=== PATIENT | female | born 1965 | race Caucasian/White ===

== ENCOUNTER 2020-05-05 08:02 | Emergency (ER) | payer OTHER ==
[~2020-05-05] VITALS: Ht 157.4 cm; Wt 59.0 kg
[~2020-05-05 08:02] MED LIST: ANAPROX DS550 MG PO
== END 2020-05-05 10:14 | disposition home or self-care (01) ==
LOC: ED 08:02
DX: S61.412A Laceration without foreign body of left hand, initial encounter (principal); W26.0XXA Contact with knife, initial encounter; Y93.89 Activity, other specified; Y92.89 Other specified places as the place of occurrence of the external cause; Y99.8 Other external cause status

== ENCOUNTER 2020-07-08 07:53 | Observation (INO) | payer OTHER ==
[~2020-07-08] VITALS: Ht 157.4 cm; Wt 59.0 kg
[2020-07-08 07:56] VITALS: BP 115/78
[2020-07-08 11:00] LABS: BASO % 0.4 % (0.0-1.0); EOS # 0.1 10*3/uL (0.0-0.4); EOS % 0.9 % (1.0-4.0); HEMATOCRIT 45.3 % (37.0-47.0); LYMPH # 1.9 10*3/uL (1.3-4.4); LYMPH % 23.2 % (27.0-41.0); MEAN CELL VOLUME 90.8 fl (81.0-99.0); MEAN CORPUSCULAR HGB 29.7 pg (27.0-31.0); MEAN CORPUSCULAR HGB CONC 32.7 g/dl (33.0-37.0); MONO # 0.6 10*3/uL (0.1-1.0); MONO % 6.8 % (3.0-9.0); NEUT # 5.5 10*3/uL (2.3-7.9); NEUT % 68.5 % (47.0-73.0); PLATELET COUNT AUTOMATED 240 10*3/uL (130-400); RED BLOOD COUNT 4.99 10*6/uL (4.10-5.10); RED CELL DISTRI WIDTH 12.7 % (0-14.5); WHITE BLOOD COUNT 8.1 10*3/uL (4.8-10.8)
[2020-07-08 11:14] LABS: ACT PARTIAL THROMBO TIME 24.6 SECONDS (20.0-32.1); INTERNATIONAL NORM RATIO 0.9 (2.0-3.5)
[2020-07-08 11:16] LABS: ALBUMIN 3.8 gm/dl (3.1-4.5); ALKALINE PHOSPHATASE 86 U/L (45-117); BUN 13 mg/dl (7-24); CHLORIDE 109 mmol/L (98-107); CREATININE 0.71 mg/dL (0.55-1.02); POTASSIUM 4.1 mmol/L (3.5-5.1); SGOT/AST 21 IU/L (3-35); SGPT/ALT 27 U/L (12-78); SODIUM 141 mmol/L (136-145); TOTAL PROTEIN 7.5 gm/dL (6.4-8.2)
--- NOTE | 2020-07-08 15:18 | NUR ---
SURGERY NURSES HERE TO ASSIST PT TO SURGERY VIA CART.
[2020-07-08 18:59] VITALS: BP 128/85
[2020-07-08 19:14] VITALS: BP 130/82
[2020-07-08 19:29] VITALS: BP 138/81
--- NOTE | 2020-07-08 19:32 | NUR ---
REPORT TO CHRISTINE FRASER
[2020-07-08 19:44] VITALS: BP 127/86
[2020-07-08 19:59] VITALS: BP 117/79
--- NOTE | 2020-07-08 20:25 | NUR ---
THIS RN CONTACTED DR BARBOSA ABOUT DC OF PT AT THIS TIME. DC ORDER WILL BE GOING INTO PLACE SHORTLY. PT STATES SHOULD BE HERE AROUND [id number].
== END 2020-07-08 21:21 | disposition home or self-care (01) ==
LOC: ED 07:53 → EDHOLD 10:57
PROVIDERS: Emergency Medicine; ADMIT Internal Medicine; ATTEND Internal Medicine
DX: S82.891A Other fracture of right lower leg, initial encounter for closed fracture (principal); E83.41 Hypermagnesemia; E87.8 Other disorders of electrolyte and fluid balance, not elsewhere classified; F17.210 Nicotine dependence, cigarettes, uncomplicated; W18.30XA Fall on same level, unspecified, initial encounter; Y93.89 Activity, other specified; Y92.89 Other specified places as the place of occurrence of the external cause; Y99.8 Other external cause status; Z20.828 Contact with and (suspected) exposure to other viral communicable diseases; Z71.6 Tobacco abuse counseling; Z98.890 Other specified postprocedural states

== ENCOUNTER → 2020-10-01 | Outpatient (CLI) | payer OTHER ==
[~2020-10-01] MED LIST changes: +DOXYCYCLINE100 M3 PO; +ULTRAM50 MG PO; +XARELTO10 MG PO
[2020-10-01 11:03] LABS: BASO % 0.5 % (0.0-1.0); EOS # 0.3 10*3/uL (0.0-0.4); LYMPH # 2.3 10*3/uL (1.3-4.4); MEAN CELL VOLUME 92.4 fl (81.0-99.0); MEAN CORPUSCULAR HGB 30.2 pg (27.0-31.0); MEAN CORPUSCULAR HGB CONC 32.7 g/dl (33.0-37.0); MEAN PLATELET VOLUME 10.4 fl (9.6-12.3); MONO # 0.6 10*3/uL (0.1-1.0); MONO % 9.7 % (3.0-9.0); NEUT % 48.6 % (47.0-73.0); PLATELET COUNT AUTOMATED 284 10*3/uL (130-400); RED BLOOD COUNT 4.87 10*6/uL (4.10-5.10); RED CELL DISTRI WIDTH 12.7 % (0-14.5); WHITE BLOOD COUNT 6.2 10*3/uL (4.8-10.8)
[2020-10-01 11:35] LABS: BUN 9 mg/dl (7-24); CHLORIDE 109 mmol/L (98-107); CREATININE 0.78 mg/dL (0.55-1.02); SODIUM 142 mmol/L (136-145)
== END | disposition home or self-care (01) ==
LOC: LAB 08:33 → COVID19 08:33
PROVIDERS: ATTEND Podiatrist Foot & Ankle Surgery
DX: Z01.818 Encounter for other preprocedural examination (principal); S93.431A Sprain of tibiofibular ligament of right ankle, initial encounter; S82.61XA Displaced fracture of lateral malleolus of right fibula, initial encounter for closed fracture; J43.8 Other emphysema; X58.XXXA Exposure to other specified factors, initial encounter; Y93.89 Activity, other specified; Y92.89 Other specified places as the place of occurrence of the external cause; Y99.8 Other external cause status; Z20.822 Contact with and (suspected) exposure to COVID-19

== ENCOUNTER → 2020-10-06 | Day surgery (SDC) | payer OTHER ==
[2020-10-01 09:42] VITALS: BP 86/43
[~2020-10-06] VITALS: Ht 157.4 cm; Wt 56.7 kg
[2020-10-06 06:56] VITALS: BP 126/78
[2020-10-06 07:55] VITALS: BP 116/71
[2020-10-06 08:10] VITALS: BP 120/73
[2020-10-06 08:25] VITALS: BP 113/71
[2020-10-06 08:36] VITALS: BP 112/64
== END ==
LOC: SDC 10-01 13:15
PROVIDERS: ATTEND Podiatrist
DX: T84.84XA Pain due to internal orthopedic prosthetic devices, implants and grafts, initial encounter (principal); R53.83 Other fatigue; E78.5 Hyperlipidemia, unspecified; F17.210 Nicotine dependence, cigarettes, uncomplicated; Z98.890 Other specified postprocedural states; Y83.8 Other surgical procedures as the cause of abnormal reaction of the patient, or of later complication, without mention of misadventure at the time of the procedure